=== PATIENT | male | born 1980 | race Two or more races ===

== ENCOUNTER 2023-02-18 13:36 | Emergency (ER) | payer OTHER ==
[~2023-02-18] VITALS: Ht 185.4 cm; Wt 122.5 kg
[2023-02-18 13:53] VITALS: BP 138/72; TEMP 98.7; O2SAT 100
[2023-02-18] MEDS ORDERED: FLUORESCEIN SODIUM OPHTH 1 EA STRIP ONE (14:37)
[2023-02-18] MEDS ORDERED: FLUORESCEIN SODIUM OPHTH 1 EA STRIP OP ONE (15:00)
[2023-02-18] MEDS ORDERED: TETRACAINE HCL 0.5% OPHTALMIC 15 ML BOTTLE OP ONE (15:00)
[2023-02-18] MEDS ORDERED: TONO PEN in ED SUPPLY ONICELL 1 EA MC ONE (15:00)
[2023-02-18] MEDS ORDERED: ERYT3.5O9 RIGHTEYE (15:16)
== END 2023-02-18 15:37 | disposition home or self-care (01) ==
LOC: ER 13:43
DX: S05.01XA Injury of conjunctiva and corneal abrasion without foreign body, right eye, initial encounter (principal); E11.9 Type 2 diabetes mellitus without complications; X58.XXXA Exposure to other specified factors, initial encounter; Y93.89 Activity, other specified; Y92.89 Other specified places as the place of occurrence of the external cause; Y99.8 Other external cause status

== ENCOUNTER 2025-01-07 11:03 | Emergency (ER) | payer MEDICAID, OTHER ==
[~2025-01-07] VITALS: Ht 185.4 cm; Wt 99.8 kg
[~2025-01-07 11:03] MED LIST: ERYT3.5O9 RIGHTEYE
[2025-01-07 11:11] VITALS: TEMP 98.8
[2025-01-07] MEDS ORDERED: SULF1TAB48 PO (12:53)
[2025-01-07 13:01] VITALS: BP 130/77; O2SAT 97
== END 2025-01-07 13:01 | disposition home or self-care (01) ==
LOC: ER 11:14
DX: S80.212A Abrasion, left knee, initial encounter (principal); E11.9 Type 2 diabetes mellitus without complications; V87.8XXA Person injured in other specified noncollision transport accidents involving motor vehicle (traffic), initial encounter; Y93.89 Activity, other specified; Y92.89 Other specified places as the place of occurrence of the external cause; Y99.8 Other external cause status
CPT/HCPCS: 73564-TC